=== PATIENT | male | born 1935 | race Caucasian/White ===

== ENCOUNTER 2017-10-17 16:27 | Outpatient (CLI) | payer MEDICARE, OTHER | END 2017-10-17 16:28 | disposition home or self-care (01) | LOC: BICULT 16:27 | PROVIDERS: ATTEND Urology | DX: N39.0 Urinary tract infection, site not specified (principal) | CPT/HCPCS: 76770 ==

== ENCOUNTER 2018-04-24 16:58 | Inpatient (IN) | payer MEDICARE, OTHER ==
[2018-04-24] MEDS ORDERED: Ondansetron HCl/PF 4 MG/2 ML Vial SLOW IVP PRN (17:41)
[2018-04-24] MEDS ORDERED: Benzonatate 100 MG CAP PO PRN (17:41)
[2018-04-24] MEDS ORDERED: Bisacodyl 5 MG TAB PO PRN (17:42)
[2018-04-24] MEDS ORDERED: Lidocaine 1% (PF) 30 ML VIAL ONE (19:25)
[2018-04-24] MEDS ORDERED: Lidocaine 1% w/Epinephrine 1:200K 30 ML VIAL ONE (19:25)
[2018-04-24 19:27] LABS: Lactic Acid 1.2 mmol/L (0.5-2.2)
[2018-04-24 19:28] LABS: ALT (SGPT) 24 U/L (8-55); AST (SGOT) 26 U/L (5-34); Albumin 3.5 g/dL (3.4-4.8); Alkaline Phosphatase 62 U/L (40-150); Anion Gap 11 mmol/L (10-20); BUN (Urea Nitrogen) 21 mg/dL (8.4-25.7); CRP (Inflammatory) 10.12 mg/dL (= or < 0.5); Calc. Creatinine Clearance 55 mL/min (70-130); Calcium 8.9 mg/dL (7.8-10.44); Carbon Dioxide 22 mmol/L (23-31); Chloride 107 mmol/L (98-107); Estimated GFR-MDRD 78; Globulin 3.3 g/dL (2.4-3.5); Glucose 106 mg/dL (83-110); Protein, Total 6.8 g/dL (5.8-8.1); Sodium 136 mmol/L (136-145)
[2018-04-24 19:35] LABS: Band 9 % (5-11); Hemoglobin 12.4 g/dL (14.0-18.0); Lymphocytes 26 % (21-51); MDiff Complete? YES; Mean Corpuscular HGB CONC 32.9 g/dL (32.0-36.0); Mean Corpuscular Hemoglobin 33.5 pg (27.0-31.0); Mean Platelet Volume 7.1 fL (7.4-10.4); Monocytes 11 % (0-10); Neutrophil 54 % (42-75); PLT Morphology Comment Appears Adequate; Platelet Count 178 thou/uL (130-400); RBC Distribution Width 11.4 % (11.5-14.5); White Blood Cell (WBC) Count 9.5 thou/uL (4.8-10.8)
--- NOTE | 2018-04-24 20:55 | PDOC.FPRHP ---
- History of Present Illness Chief Complaint: Left Knee Pain History of Present Illness: Mr Tirado is an 82yo male with pmh of HTN, and dementia who was directly admitted from clinic for suspected septic arthritis. Pt reports pain, swelling and redness to left knee over the last 2 days. He denies any trauma to knee or recent falls. He lives with his daughter. She reports he was able to walk up until 2 days ago when it became too painful to apply weight to left leg. Denies fever, chills, changes in mental status. - Allergies/Adverse Reactions Allergies Allergy/AdvReac Type Severity Reaction Status Date / Time No Known Allergies Allergy Verified 01/17/14 00:10 - Home Medications Medication Instructions Recorded Confirmed Type Doxazosin Mesylate 8 mg PO DAILY 01/04/14 04/24/18 History Aspirin [Ecotrin Low Strength] 81 mg PO DAILY 01/17/14 04/24/18 History Amlodipine [Norvasc] 2.5 mg PO DAILY 04/24/18 04/24/18 History Atorvastatin Calcium [Lipitor] 40 mg PO HS 04/24/18 04/24/18 History Ergocalciferol (Vitamin D2) 50,000 unit PO [id number] 04/24/18 04/24/18 History [Vitamin D2] Finasteride [Proscar] 5 mg PO DAILY 04/24/18 04/24/18 History Folic Acid/Vit B Complex and C 1 tablet PO DAILY 04/24/18 04/24/18 History [Super B-Complex Folic Acid w/ Vitamin C] Furosemide [Lasix] 20 mg PO DAILY 04/24/18 04/24/18 History Mirtazapine [Remeron] 15 mg PO HS 04/24/18 04/24/18 History Potassium Chloride [K-Dur] 20 meq PO DAILY 04/24/18 04/24/18 History Selenium [Selenomax] 200 mcg PO DAILY 04/24/18 04/24/18 History Vitamin E (Dl,Tocopheryl Acet) 450 mg PO DAILY 04/24/18 04/24/18 History [Vitamin E] - History PMHx: BPH, dementia, deconditioning, HLD, depression, HTN PSHx: None FHx: None Social: Denies tobacco, alcohol or drug use. - Review of Systems General: denies: fever/chills, weight/appetite/sleep changes Eyes: denies: eye pain, vision changes ENT: denies: nasal congestion, rhinorrhea Respiratory: denies: cough, congestion, shortness of breath Cardiovascular: denies: chest pain, edema Gastrointestinal: denies: nausea, vomiting, diarrhea, constipation Genitourinary: reports: incontinence. denies: dysuria Skin: denies: rashes, lesions Musculoskeletal: reports: pain, tenderness, stiffness, swelling Neurological: denies: numbness, weakness - Vital signs BP: 136/72 HR: 67 RR: 20 Tmax: 97.9 Pox: 98% on RA Wt: 63kg - Physical Exam Constitutional: NAD, well developed HEENT: normocephalic and atraumatic, normal nasal mucosa, MMM, oropharynx clear Neck: supple, trachea midline Heart: RRR, no murmurs/rubs/gallops Lungs: CTAB, no respiratory distress, no wheezing Abdomen: soft, non-tender, bowel sounds present Musculoskeletal: normal structure, normal tone -Musculoskeletal: 2+ pitting edema LE b/l Left knee: tender to palpation and passive range of motion. Active ROM limited due to pain. Mild erythema and large effusion Neurological: no focal deficit Skin: no rash/lesions, capillary refill <2 seconds Psychiatric: normal mood and affect, good judgment and insight FMR H&P: Results - Labs Result Diagrams: 04/25/18 05:22 10 18:49 Lab results: WBC 9.5 thou/uL (4.8-10.8) 04/24/18 18:49 Hgb 12.4 g/dL (14.0-18.0) L 04/24/18 18:49 Hct 37.6 % (42.0-52.0) L 04/24/18 18:49 MCV 102.0 fL (78.0-98.0) H 18 18:49 Plt Count 178 thou/uL (130-400) 04/24/18 18:49 Band Neuts % (Manual) 9 % (5-11) 18 18:49 ESR Westergren 40 mm/hr (Less than 20) 18 18:49 Sodium 136 mmol/L (136-145) 04/24/18 18:49 Potassium 4.0 mmol/L (3.5-5.1) 04/24/18 18:49 Chloride 107 mmol/L (98-107) 04/24/18 18:49 Carbon Dioxide 22 mmol/L (23-31) L 04/24/18 18:49 BUN 21 mg/dL (8.4-25.7) 04/24/18 18:49 Creatinine 0.93 mg/dL (0.6-1.3) 04/24/18 18:49 Glucose 106 mg/dL (83-110) 04/24/18 18:49 Lactic Acid 1.2 mmol/L (0.5-2.2) 04/24/18 18:49 Calcium 8.9 mg/dL (7.8-10.44) 04/24/18 18:49 Total Bilirubin 1.0 mg/dL (0.2-1.2) 04/24/18 18:49 AST 26 U/L (5-34) 04/24/18 18:49 ALT 24 U/L (8-55) 04/24/18 18:49 Alkaline Phosphatase 62 U/L (40-150) 04/24/18 18:49 C-Reactive Protein 10.12 mg/dL (= or < 0.5) H 04/24/18 18:49 Serum Total Protein 6.8 g/dL (5.8-8.1) 04/24/18 18:49 Albumin 3.5 g/dL (3.4-4.8) 04/24/18 18:49 FMR H&P: A/P - Problem List (1) Effusion, left knee Current Visit: Yes Status: Acute Code(s): M25.462 - EFFUSION, LEFT KNEE (2) Dementia Current Visit: No Status: Acute Code(s): F03.90 - UNSPECIFIED DEMENTIA WITHOUT BEHAVIORAL DISTURBANCE (3) Depression Current Visit: No Status: Acute Code(s): F32.9 - MAJOR DEPRESSIVE DISORDER, SINGLE EPISODE, UNSPECIFIED (4) Hyperlipidemia Current Visit: No Status: Acute Code(s): E78.5 - HYPERLIPIDEMIA, UNSPECIFIED (5) Hypertension Current Visit: No Status: Acute Code(s): I10 - ESSENTIAL (PRIMARY) HYPERTENSION - Plan Suspected Septic Arthritis - DDx also includes Gout vs traumatic hemarthrosis - CRP elevated at 10.12 - Uric acid <6 - Plan to do arthrocentesis with Gram stain and Cx, glucose and protein and eval for crystals - Blood Cx pending - Start Vanc and Zosyn CKD2 - Continue to monitor HTN - Continue home meds BPH - Continue home meds Dementia - At baseline per daughter Code Status: DULL DVT ppx: Lovenox FMR H&P: Upper Level - Pertinent history 82 y/o M w/ PMHx of HTN, Dementia, and BPH presents as a direct admit from clinic for evaluation of suspected septis arthritis. Patient w/ increased swelling, pain, and redness to left knee over the past 2 days. Denies any hx of falls. Pt previously fully ambulatory, but unable to get around 2/2 pain. Pt was treated w/ HCTZ for lower extremity swelling and had ECHO done yesterday per daughter to eval for possible underlying heart failure. Daughter reports she has been giving him the HCTZ which previously worked well for his swelling w /o any improvement. Denies any fevers. No prior/recent hx of knee injections. - Pertinent findings BP 136/72 P 67 RR 20 Temp 97.9 DegF O2sat 96% on RA WBC 9.5 Hgb 12.4 Neut 54% Platelet 178 BUN 21 Cr 0.93 (GFR 78) Gluc 78 CRP 10.12 ESR - 40 GEN: NAD HEENT: Normocephalic, atraumatic. PERRLA, EOMI CARDS: RRR, no murmurs, rubs, or gallops PULM: CTA-B/l, no wheezes or rhonci GI: Soft, NTTP, no rigidty, no guarding, BSx4 Ext: 2+ pitting edema LE b/l w/ mild erythema over L-knee and large effusion noted. L-knee TTP - Plan Date/Time: 04/24/182054 Mariann Remy MD, have evaluated this patient and agree with findings/plan as outlined by internal audit consultant resident. Pertinent changes/additions are listed here. 82 y/o F w/: 1) Septic Arthritis vs Gout vs Traumatic Hemarthrosis - Pt w/ mild erythema and no overt signs of systemic infection on labs - Elevated ESR/CRP do point to an underlying inflammatory process taking place, however cannot differentiate between septic joint and gout 2/2 this - Uric acid level <6 making gout less likely and no endorsed falls. However, patient does have moderate dementia and may be confused and not remembering an acute trauma which could account for this. - Synovial fluid obtained from aspiration grossly bloody and approx. 70 cc removed at this time - Synovial fluid sent to pharmacy fot GS/Cx, glucose, protein, and path to eval for possible crystals - Will start on broad spectrum abx w/ Vancomycin and Zosyn and obtain blood culture to r/o bacteremia as joint would have needed to be seeded by this for infection to occur - Will hold off on starting indomethacin until path review of crystals returns in setting of mild CKD and concern for increased risk of falls on NSAIDs in an elderly patient - Will plan to hold HCTZ in the setting that this is due to a gout flare 2) HTN - Stable. Cont. w/ home medications. 3) BPH - Cont. w/ doxasozin 4) Dementia - Appears to be at baseline. Will cont. to monitor 5) CKD 2 - Appears at baseline from outside labs - Will cont. to monitor and renal dose meds as needed CODE STATUS: Full LOS: >2 midnights Diet: HH Attending Addendum - Attending Addendum Date/Time: 04/25/18 1301 I personally evaluated the patient and discussed the management with Dr. Kilpatrick on 04/24/2018 @ 2200 I agree with the History, Examination, Assessment and Plan documented above with any addition or exceptions noted below- Briefly this is an 82 yo male with h/o dementia, HTN, HLD who was sent from clinic due to possible septic knee. Patient states taht his knee has been painful, swoolen and red for last 2 days. Unable to weight bear secondary to pain. Denies any recent fall or trauma. Denies any h/o gout though patient was recently started on HCTZ for BP. PMH/PSH/ Meds/All reviewed and agree with resident's documentation. Afebrile VSS. Exam repeated by me and agree with resident's findings. Labs: WBC= 935, H/H=12.4/37.6 , plt= 178, Diff= 54N/9B/26L, Oa=127, K=4.0, Nj=623, CO2=22, BUN/Cr= 21/0.93, Gluc= 106, uric acid=5.7, Lactate-1.2 CRP= 10.12 A/P: 1) Knee effusion, pain, warmth- possible septic arthritis- plan for knee aspiration tonight; blood cultures ordered and will start Vanc/zosyn after aspiration. 2) HTN- continue home meds; hold HCTZ for now.
[2018-04-24] MEDS: Atorvastatin Calcium 40 MG TAB PO SCH (22:25)
[2018-04-24] MEDS: Mirtazapine 15 MG TAB PO SCH (22:25)
[2018-04-24 22:54] LABS: BF Color Red; Body Fluid Source SYNOVIAL FLUID; Clarity Cloudy/Turbid (Clear); RBC Background Count 0.002; Tube # EDTA
[2018-04-24 22:55] LABS: RBC Count-Automated 244000 /cumm; WBC/NonHematic-Auto 30600 /cumm
[2018-04-24 23:17] LABS: BF Segmented Neutrophils 78 %; Cell Count Non Hematic 21 %; Lymphocytes 1 %
[2018-04-24] MEDS: Vancomycin HCl 1 GM in Premix Bag 1 BAG IVPB SCH (23:22)
[2018-04-24] MEDS: Piperacillin/Tazobactam 3.375 GM in Sodium Chloride 0.9% 100 ML IVPB SCH (23:23)
--- NOTE | 2018-04-25 02:53 | PDOC.OP ---
Operative Note - Operative Note Operative Note: Pre-Op Diagnosis: Possible Septic Arthritis Post-Op Diagnosis: Same as above Procedure: Arthrocentesis of Major Joint - Left Knee Attending: Dr. Lorenz in attendance for the entire procedure Resident: Dr. Mariann Marin Consent for Arthrocentesis: Risks and benefits discussed with patient with consent obtained and placed into chart Procedure: The patient was laid flat w/ legs extended and a rolled towel placed behind the knee in the popliteal fossa. Ultrasound was used to evaluate the joint space. The associated joint effusion was visualized and the overlying skin marked at the supero-lateral aspect of the knee. The site was cleansed with alcohol and 1 % lidocaine w/o epi was administered via a 22 gauge needle with initial wheel formation and subsequent tracking down into the effusion which was confirmed via ultrasound. The knee was then prepped again in sterile fashion using chlorhexidine. An 18 gauge needle was subsequently introduced using sterile technique using the previously anesthetized track with negative pressure placed on the syringe. Synovial fluid was successfully expressed and noted to be grossly bloody. Approximately 70 cc of fluid was aspirated from the knee with samples placed in a sterile container to be sent to the lab for analysis. Estimated Blood Loss: None Complications: None. The patient tolerated the procedure well without complications. <Rodney Marin - Last Filed: 04/25/18 02:36> Attending Addendum - Attending Addendum Date/Time: 04/25/18 6993 I personally evaluated the patient and discussed the management with Dr. Marin on 04/24/2018@2200 I was present, assisted and supervised the left knee arthrocentesis. 70-80mL bloody fluid removed. Patient tolerated procedure well. Fluid sent for further analysis. <Yessica Lorenz - Last Filed: 04/25/18 13:00>
[2018-04-25 05:45] LABS: #Eosinphils 0.1 thou/uL (0.0-0.7); #Monocytes 1.1 thou/uL (0.11-0.59); #Neutrophils 5.3 thou/uL (1.40-6.50); %Basophils 0.3 % (0.0-1.0); %Eosinophils 0.9 % (0.0-10.0); %Lymphocytes 23.3 % (21.0-51.0); %Monocytes 12.9 % (0.0-10.0); %Neutrophils 62.6 % (42.0-75.0); Hemoglobin 11.6 g/dL (14.0-18.0); Mean Corpuscular HGB CONC 33.1 g/dL (32.0-36.0); Mean Corpuscular Hemoglobin 33.5 pg (27.0-31.0); Mean Platelet Volume 7.1 fL (7.4-10.4); Platelet Count 167 thou/uL (130-400); RBC Distribution Width 11.4 % (11.5-14.5); Red Blood Cell (RBC) Count 3.48 mill/uL (4.70-6.10); White Blood Cell (WBC) Count 8.5 thou/uL (4.8-10.8)
[2018-04-25] MEDS: Piperacillin/Tazobactam 3.375 GM in Sodium Chloride 0.9% 100 ML IVPB SCH ×4 (05:54→23:59)
--- NOTE | 2018-04-25 06:54 | PDOC.FM ---
- Subjective Subjective: Mr. Tirado is sleeping comfortably in bed, no complaints at this time. Alert, not sure why he is here. - Objective Vital Signs & Weight: Vital Signs (12 hours) Temp Pulse Resp BP Pulse Ox 04/25/18 03:56 98.5 F 70 19 155/69 H 94 L 04/25/18 00:35 97.4 F L 70 20 149/70 H 98 04/24/18 20:13 97.9 F 104 H 22 H 121/55 L 96 Weight Weight 63.049 kg I&O: 04/23/18 04/24/18 04/25/18 06:59 06:59 06:59 Intake Total 540 Balance 540 Result Diagrams: 04/25/18 05:22 04/24/18 18:49 <Braulio Tsai - Last Filed: 04/25/18 09:22> - Objective Vital Signs & Weight: Vital Signs (12 hours) Temp Pulse Resp BP BP Pulse Ox 04/25/18 11:45 97.7 F 70 18 117/74 96 04/25/18 08:32 64 143/63 H 04/25/18 08:27 92 L 04/25/18 07:43 97.4 F L 99 18 143/63 H 92 L 04/25/18 03:56 98.5 F 70 19 155/69 H 94 L Weight Weight 63.049 kg I&O: 04/24/18 04/25/18 04/26/18 06:59 06:59 06:59 Intake Total 540 300 Balance 540 300 Result Diagrams: 04/25/18 05:22 04/24/18 18:49 <Yessica Lorenz - Last Filed: 04/25/18 12:58> Phys Exam - Physical Examination Constitutional: NAD HEENT: moist MMs Respiratory: no wheezing, no rales, no rhonchi, clear to auscultation bilateral Cardiovascular: RRR, no significant murmur Gastrointestinal: soft, no distention Musculoskeletal: no edema, pulses present pain to palpation over L knee Neurological: non-focal, moves all 4 limbs Psychiatric: normal affect Skin: no rash <Braulio Tsai - Last Filed: 04/25/18 09:22> Dx/Plan (1) Effusion, left knee Code(s): M25.462 - EFFUSION, LEFT KNEE Status: Acute (2) CKD (chronic kidney disease) stage 2, GFR 60-89 ml/min Code(s): N18.2 - CHRONIC KIDNEY DISEASE, STAGE 2 (MILD) Status: Acute (3) Depression Code(s): F32.9 - MAJOR DEPRESSIVE DISORDER, SINGLE EPISODE, UNSPECIFIED Status : Acute (4) Hyperlipidemia Code(s): E78.5 - HYPERLIPIDEMIA, UNSPECIFIED Status: Acute (5) Hypertension Code(s): I10 - ESSENTIAL (PRIMARY) HYPERTENSION Status: Acute - Plan Plan: Suspected Septic Arthritis - DDx also includes Gout vs traumatic hemarthrosis - CRP elevated at 10.12 - Uric acid <6 - arthrocentesis with Gram stain and Cx, glucose and protein and eval for crystals - Blood Cx pending - Start Vanc and Zosyn CKD2 - Continue to monitor HTN - Continue home meds BPH - Continue home meds Dementia - At baseline per daughter Code Status: DULL DVT ppx: Lovenox Dispo: poss DC with negative gram staining of joint aspirate <Braulio Tsai - Last Filed: 04/25/18 09:22> Attending Addendum - Attending Addendum Date/Time: 04/25/18 3234 I personally evaluated the patient and discussed the management with Dr. Tsai I agree with the History, Examination, Assessment and Plan documented above with any addition or exceptions noted below- Patient denies complaints. Still with some pain with flexion of knee. Afebrile VSS. A/P: 1) Knee effusion and pain- s/p arthrocentesis; Gram stain with no organisms. Cell count with high RBC , WBC count and no organisms seem. Now suspecting traumatic effusion. Await crystal analysis and culture. Continue IV abx for now. Will also check LE doppler as calf also swollen though not tender. <Yessica Lorenz - Last Filed: 04/25/18 12:58>
[2018-04-25] MEDS: Amlodipine 5 MG TAB PO SCH (08:32)
[2018-04-25] MEDS: Potassium Chloride 20 MEQ TAB PO SCH (08:32)
[2018-04-25] MEDS: Folic Acid/Vit B Comp W-C PO SCH (08:33)
[2018-04-25] MEDS: Vitami E (Dl,Tocopheryl Acet) 400 UNITS CAP PO SCH (08:33)
[2018-04-25] MEDS: Finasteride 5 MG TAB PO SCH (08:33)
[2018-04-25] MEDS: Aspirin 81 mg Enteric Coated Tablet PO SCH (08:33)
[2018-04-25] MEDS: Doxazosin Mesylate 4 MG TAB PO SCH (08:33)
[2018-04-25] MEDS: Furosemide 20 MG TAB PO SCH (08:33)
[2018-04-25] MEDS: Enoxaparin Sodium 40 MG/0.4 ML SYRINGE SC SCH (08:34)
[2018-04-25] MEDS ORDERED: SELENIUM 200 MCG PO SCH (09:00)
[2018-04-25] MEDS: Mirtazapine 15 MG TAB PO SCH (22:20)
[2018-04-25] MEDS: Vancomycin HCl 1 GM in Premix Bag 1 BAG IVPB SCH (22:20)
[2018-04-25] MEDS: Atorvastatin Calcium 40 MG TAB PO SCH (22:20)
--- NOTE | 2018-04-25 23:35 | ULT ---
BILATERAL LOWER EXTREMITY VENOUS DUPLEX EXAM: HISTORY: Bilateral lower extremity swelling and edema. TECHNIQUE: Real-time color Doppler evaluation of the right and left lower extremities was performed from the boo in to the calf. This includes evaluation of the common femoral, superficial femoral, profunda femora l, saphenous, popliteal, and posterior tibial veins. FINDINGS: This shows patent deep venous systems bilaterally. There is normal compressibility and augmentation. There is no evidence of DVT. IMPRESSION: No evidence of deep venous thrombosis of either lower extremity. POS: TOY
--- NOTE | 2018-04-26 06:19 | PDOC.FM ---
- Subjective Subjective: Mr. Tirado is resting comfortably in bed, seemingly at baseline mentation, unsure of situation. No reported pain. no other complaints - Objective Vital Signs & Weight: Vital Signs (12 hours) Temp Pulse Resp BP Pulse Ox 04/26/18 00:00 98.7 F 73 18 124/66 94 L 04/25/18 20:00 98.2 F 82 20 130/62 93 L Weight Weight 63.049 kg I&O: 04/24/18 04/25/18 04/26/18 06:59 06:59 06:59 Intake Total 540 900 Balance 540 900 Result Diagrams: 04/26/18 04:55 04/24/18 18:49 <Braulio Tsai - Last Filed: 04/26/18 07:56> - Objective Vital Signs & Weight: Vital Signs (12 hours) Temp Pulse Resp BP BP Pulse Ox 04/26/18 14:52 97.9 F 76 16 127/69 94 L 04/26/18 11:01 98.2 F 76 22 H 120/66 94 L 04/26/18 11:00 98.2 F 76 22 H 120/66 94 L 04/26/18 08:25 64 113/61 Weight Weight 63.049 kg I&O: 04/25/18 04/26/18 04/27/18 06:59 06:59 06:59 Intake Total 540 1800 900 Balance 540 1800 900 Result Diagrams: 04/26/18 04:55 04/24/18 18:49 <Yessica Lorenz - Last Filed: 04/26/18 20:20> Phys Exam - Physical Examination Constitutional: NAD HEENT: moist MMs Respiratory: clear to auscultation bilateral Cardiovascular: RRR, no significant murmur Gastrointestinal: soft, non-tender, no distention Musculoskeletal: pulses present, edema present (improved from yesterday ) tenderness to palpation over R lower leg Neurological: non-focal Psychiatric: normal affect <Braulio Tsai - Last Filed: 04/26/18 07:56> Dx/Plan (1) Effusion, left knee Code(s): M25.462 - EFFUSION, LEFT KNEE Status: Acute (2) CKD (chronic kidney disease) stage 2, GFR 60-89 ml/min Code(s): N18.2 - CHRONIC KIDNEY DISEASE, STAGE 2 (MILD) Status: Acute (3) Depression Code(s): F32.9 - MAJOR DEPRESSIVE DISORDER, SINGLE EPISODE, UNSPECIFIED Status : Acute (4) Hyperlipidemia Code(s): E78.5 - HYPERLIPIDEMIA, UNSPECIFIED Status: Acute (5) Hypertension Code(s): I10 - ESSENTIAL (PRIMARY) HYPERTENSION Status: Acute - Plan Plan: Suspected Septic Arthritis - DDx also includes Gout vs traumatic hemarthrosis - CRP elevated at 10.12 - Uric acid <6 - arthrocentesis with Gram stain and Cx, glucose and protein negative for infection - eval for crystals pending - Blood Cx pending - Start Vanc and Zosyn, consider DCing today CKD2 - Continue to monitor HTN - Continue home meds BPH - Continue home meds Dementia - At baseline per daughter Code Status: DULL DVT ppx: Lovenox Dispo: poss DC with aspirate reading <Braulio Tsai - Last Filed: 04/26/18 07:56> (1) Effusion, left knee Code(s): M25.462 - EFFUSION, LEFT KNEE Status: Acute (2) Dementia Code(s): F03.90 - UNSPECIFIED DEMENTIA WITHOUT BEHAVIORAL DISTURBANCE Status: Acute (3) Depression Code(s): F32.9 - MAJOR DEPRESSIVE DISORDER, SINGLE EPISODE, UNSPECIFIED Status : Acute (4) Hyperlipidemia Code(s): E78.5 - HYPERLIPIDEMIA, UNSPECIFIED Status: Acute (5) Hypertension Code(s): I10 - ESSENTIAL (PRIMARY) HYPERTENSION Status: Acute <Yessica Lorenz - Last Filed: 04/26/18 20:20> Attending Addendum - Attending Addendum Date/Time: 04/26/182016 I personally evaluated the patient and discussed the management with Dr. Tsai I agree with the History, Examination, Assessment and Plan documented above with any addition or exceptions noted below- Patient eating breakfast. only has pain if tries to bend knees. Both knees now hurting. Afebrile VSS. A/P: 1) Knee effusion- culture negative x 24 hours. Continue abx until finalized. Suspect traumatic effusion. Crystal analysis still pending, will be available tomorrow. Will consult PT to assist with mobilization. <Yessica Lorenz - Last Filed: 04/26/18 20:20>
[2018-04-26] MEDS: Piperacillin/Tazobactam 3.375 GM in Sodium Chloride 0.9% 100 ML IVPB SCH ×4 (06:21→23:25)
[2018-04-26 06:31] LABS: #Lymphocytes 1.7 thou/uL (1.20-3.40); #Monocytes 1.2 thou/uL (0.11-0.59); #Neutrophils 5.7 thou/uL (1.40-6.50); %Basophils 0.3 % (0.0-1.0); %Eosinophils 0.3 % (0.0-10.0); %Lymphocytes 19.8 % (21.0-51.0); %Monocytes 13.3 % (0.0-10.0); %Neutrophils 66.3 % (42.0-75.0); Hemoglobin 11.5 g/dL (14.0-18.0); Mean Corpuscular HGB CONC 33.4 g/dL (32.0-36.0); Mean Corpuscular Hemoglobin 33.4 pg (27.0-31.0); Mean Corpuscular Volume 99.9 fL (78.0-98.0); Mean Platelet Volume 7.4 fL (7.4-10.4); Platelet Count 166 thou/uL (130-400); RBC Distribution Width 11.3 % (11.5-14.5); Red Blood Cell (RBC) Count 3.45 mill/uL (4.70-6.10); White Blood Cell (WBC) Count 8.6 thou/uL (4.8-10.8)
[2018-04-26] MEDS: Folic Acid/Vit B Comp W-C PO SCH (08:24)
[2018-04-26] MEDS: Potassium Chloride 20 MEQ TAB PO SCH (08:24)
[2018-04-26] MEDS: Finasteride 5 MG TAB PO SCH (08:24)
[2018-04-26] MEDS: Aspirin 81 mg Enteric Coated Tablet PO SCH (08:24)
[2018-04-26] MEDS: Vitami E (Dl,Tocopheryl Acet) 400 UNITS CAP PO SCH (08:25)
[2018-04-26] MEDS: Doxazosin Mesylate 4 MG TAB PO SCH (08:25)
[2018-04-26] MEDS: Furosemide 20 MG TAB PO SCH (08:25)
[2018-04-26] MEDS: Enoxaparin Sodium 40 MG/0.4 ML SYRINGE SC SCH (08:25)
[2018-04-26] MEDS: Amlodipine 5 MG TAB PO SCH (08:25)
[2018-04-26] MEDS: Acetaminophen 500 MG TAB PO PRN (14:47)
[2018-04-26] MEDS: Atorvastatin Calcium 40 MG TAB PO SCH (22:05)
[2018-04-26] MEDS: Vancomycin HCl 1 GM in Premix Bag 1 BAG IVPB SCH (22:05)
[2018-04-26] MEDS: Mirtazapine 15 MG TAB PO SCH (22:05)
[2018-04-26 22:41] LABS: Vancomycin, Trough 4.4 ug/mL
[2018-04-27] MEDS: Piperacillin/Tazobactam 3.375 GM in Sodium Chloride 0.9% 100 ML IVPB SCH (05:40)
[2018-04-27 05:43] LABS: #Eosinphils 0.1 thou/uL (0.0-0.7); #Lymphocytes 1.5 thou/uL (1.20-3.40); #Monocytes 0.9 thou/uL (0.11-0.59); #Neutrophils 5.1 thou/uL (1.40-6.50); %Basophils 0.5 % (0.0-1.0); %Eosinophils 1.5 % (0.0-10.0); %Lymphocytes 19.9 % (21.0-51.0); %Monocytes 11.8 % (0.0-10.0); %Neutrophils 66.2 % (42.0-75.0); Hemoglobin 11.2 g/dL (14.0-18.0); Mean Corpuscular HGB CONC 32.5 g/dL (32.0-36.0); Mean Corpuscular Hemoglobin 32.8 pg (27.0-31.0); Mean Platelet Volume 7.2 fL (7.4-10.4); Platelet Count 171 thou/uL (130-400); RBC Distribution Width 11.3 % (11.5-14.5); Red Blood Cell (RBC) Count 3.41 mill/uL (4.70-6.10); White Blood Cell (WBC) Count 7.7 thou/uL (4.8-10.8)
--- NOTE | 2018-04-27 06:22 | PDOC.FM ---
- Subjective Subjective: Mr. Tirado is sleeping comfortably in bed, he has no complaints at this time. Denies knee pain. When asked about a PT assesment, he reported he "doesnt like to be fooled with" - Objective Vital Signs & Weight: Vital Signs (12 hours) Temp Pulse Resp BP Pulse Ox 04/27/18 04:00 98.9 F 76 14 140/68 97 04/27/18 00:00 98.3 F 63 16 138/57 L 97 04/26/18 22:06 80 L 04/26/18 19:30 97.4 F L 80 16 127/69 96 Weight Weight 63.049 kg I&O: 04/25/18 04/26/18 04/27/18 06:59 06:59 06:59 Intake Total 540 1800 900 Balance 540 1800 900 Result Diagrams: 04/27/18 05:12 04/24/18 18:49 Phys Exam - Physical Examination HEENT: moist MMs Respiratory: no wheezing, no rales, no rhonchi, clear to auscultation bilateral Cardiovascular: RRR, no significant murmur, no rub Gastrointestinal: soft, no distention Musculoskeletal: no edema, pulses present edema and tenderness to palpation much improved Neurological: moves all 4 limbs Psychiatric: normal affect Skin: no rash Dx/Plan (1) Effusion, left knee Code(s): M25.462 - EFFUSION, LEFT KNEE Status: Acute (2) CKD (chronic kidney disease) stage 2, GFR 60-89 ml/min Code(s): N18.2 - CHRONIC KIDNEY DISEASE, STAGE 2 (MILD) Status: Acute (3) Depression Code(s): F32.9 - MAJOR DEPRESSIVE DISORDER, SINGLE EPISODE, UNSPECIFIED Status : Acute (4) Hyperlipidemia Code(s): E78.5 - HYPERLIPIDEMIA, UNSPECIFIED Status: Acute (5) Hypertension Code(s): I10 - ESSENTIAL (PRIMARY) HYPERTENSION Status: Acute - Plan Plan: Suspected Septic Arthritis - Most likely traumatic hemarthrosis, DDx also includes Gout - CRP elevated at 10.12 - Uric acid <6 - arthrocentesis with Gram stain and Cx, glucose and protein negative for infection - eval for crystals pending - Blood/knee aspirate cultures neg at 48 hrs, CHARLEY garcia CKD2 - Continue to monitor HTN - Continue home meds BPH - Continue home meds Dementia - At baseline per daughter Code Status: DULL DVT ppx: Lovenox Dispo: poss DC with aspirate crystal reading/PT eval
[2018-04-27] MEDS: Potassium Chloride 20 MEQ TAB PO SCH (08:52)
[2018-04-27] MEDS: Amlodipine 5 MG TAB PO SCH ×2 (08:53→09:03)
[2018-04-27] MEDS: Aspirin 81 mg Enteric Coated Tablet PO SCH ×2 (08:53→09:05)
[2018-04-27] MEDS: Doxazosin Mesylate 4 MG TAB PO SCH ×2 (08:53→09:05)
[2018-04-27] MEDS: Acetaminophen 500 MG TAB PO PRN (08:53)
[2018-04-27] MEDS: Furosemide 20 MG TAB PO SCH ×2 (08:53→09:05)
[2018-04-27] MEDS: Finasteride 5 MG TAB PO SCH ×2 (08:53→09:05)
[2018-04-27] MEDS: Vitami E (Dl,Tocopheryl Acet) 400 UNITS CAP PO SCH (08:53)
[2018-04-27] MEDS: Folic Acid/Vit B Comp W-C PO SCH (08:53)
[2018-04-27] MEDS: Enoxaparin Sodium 40 MG/0.4 ML SYRINGE SC SCH ×2 (08:53→09:05)
[2018-04-27] MEDS ORDERED: Vancomycin HCl 1 GM in Premix Bag 1 BAG IVPB SCH (11:00)
--- NOTE | 2018-04-27 12:13 | PRG ---
DATE OF SERVICE: 04/27/2018 This is an addendum to the note of Dr. Braulio Tsai. Mr. Tirado's left knee looks and feels better. So for his Gram stain and culture are negative for se ptic arthritis. We are waiting crystal analysis for gout. In any event, he is likely ready for disc harge later today on an NSAID.
[2018-04-27] MEDS ORDERED: predniSONE 20 MG TAB PO SCH (12:30)
[2018-04-27] MEDS: Atorvastatin Calcium 40 MG TAB PO SCH (21:06)
[2018-04-27] MEDS: Mirtazapine 15 MG TAB PO SCH (21:06)
[2018-04-28 06:21] LABS: #Lymphocytes 1.4 thou/uL (1.20-3.40); #Monocytes 0.6 thou/uL (0.11-0.59); #Neutrophils 6.6 thou/uL (1.40-6.50); %Basophils 0.2 % (0.0-1.0); %Eosinophils 0.5 % (0.0-10.0); %Lymphocytes 16.2 % (21.0-51.0); %Monocytes 6.8 % (0.0-10.0); %Neutrophils 76.4 % (42.0-75.0); Hemoglobin 11.9 g/dL (14.0-18.0); Mean Corpuscular Hemoglobin 33.5 pg (27.0-31.0); Mean Platelet Volume 7.8 fL (7.4-10.4); Platelet Count 197 thou/uL (130-400); RBC Distribution Width 11.3 % (11.5-14.5); Red Blood Cell (RBC) Count 3.54 mill/uL (4.70-6.10); White Blood Cell (WBC) Count 8.7 thou/uL (4.8-10.8)
--- NOTE | 2018-04-28 06:26 | PDOC.FM ---
- Subjective Subjective: Mr. Tirado is sleeping comfortably in bed, when aroused he has no complaints. Orientation at baseline. - Objective Vital Signs & Weight: Vital Signs (12 hours) Temp Pulse Resp BP Pulse Ox 04/28/18 04:00 97.5 F L 63 16 134/66 95 04/27/18 23:45 97.5 F L 67 14 123/76 97 04/27/18 20:00 94 L 04/27/18 19:44 97.5 F L 79 16 124/67 94 L Weight Weight 63.049 kg I&O: 04/26/18 04/27/18 04/28/18 06:59 06:59 06:59 Intake Total 4554 254 0070 Balance 5427 981 5634 Result Diagrams: 04/28/18 05:23 04/24/18 18:49 Phys Exam - Physical Examination Constitutional: NAD HEENT: moist MMs Respiratory: no wheezing, no rales, no rhonchi, clear to auscultation bilateral Cardiovascular: RRR, no significant murmur, no rub Gastrointestinal: soft, non-tender, no distention Musculoskeletal: no edema Neurological: non-focal Psychiatric: normal affect Skin: no rash Dx/Plan (1) Effusion, left knee Code(s): M25.462 - EFFUSION, LEFT KNEE Status: Acute (2) CKD (chronic kidney disease) stage 2, GFR 60-89 ml/min Code(s): N18.2 - CHRONIC KIDNEY DISEASE, STAGE 2 (MILD) Status: Acute (3) Depression Code(s): F32.9 - MAJOR DEPRESSIVE DISORDER, SINGLE EPISODE, UNSPECIFIED Status : Acute (4) Hyperlipidemia Code(s): E78.5 - HYPERLIPIDEMIA, UNSPECIFIED Status: Acute (5) Hypertension Code(s): I10 - ESSENTIAL (PRIMARY) HYPERTENSION Status: Acute - Plan Plan: Psuedogout - Aspirate read resulted pseudogout crystals - CRP elevated at 10.12 - Uric acid <6 - arthrocentesis with Gram stain and Cx, glucose and protein negative for infection - prednisone 30mg for 3 days, taper - Blood/knee aspirate cultures neg at 48 hrs, DC vanc zosyn CKD2 - Continue to monitor HTN - Continue home meds BPH - Continue home meds Dementia - At baseline per daughter Code Status: DULL DVT ppx: Lovenox Dispo: poss DC home with daughter today with successful ambulation, or DC to SNF for strengthening
[2018-04-28] MEDS: Doxazosin Mesylate 4 MG TAB PO SCH (08:39)
[2018-04-28] MEDS: Vitami E (Dl,Tocopheryl Acet) 400 UNITS CAP PO SCH (08:39)
[2018-04-28] MEDS: Amlodipine 5 MG TAB PO SCH (08:39)
[2018-04-28] MEDS: predniSONE 20 MG TAB PO SCH (08:40)
[2018-04-28] MEDS: Aspirin 81 mg Enteric Coated Tablet PO SCH (08:40)
[2018-04-28] MEDS: Potassium Chloride 20 MEQ TAB PO SCH (08:40)
[2018-04-28] MEDS: Furosemide 20 MG TAB PO SCH (08:40)
[2018-04-28] MEDS: Finasteride 5 MG TAB PO SCH (08:40)
[2018-04-28] MEDS: Folic Acid/Vit B Comp W-C PO SCH (08:40)
[2018-04-28] MEDS: Enoxaparin Sodium 40 MG/0.4 ML SYRINGE SC SCH (08:42)
--- NOTE | 2018-04-28 11:41 | PRG ---
DATE OF SERVICE: 04/28/2018 SUBJECTIVE: Mr. Tirado's knee aspiration came back positive for pseudogout. He is currently on ster oids for treatment. He is ready for discharge, but given that he is deconditioned, we are encouragin g him to work with OT, PT in anticipation of this discharge.
[2018-04-28] MEDS: Atorvastatin Calcium 40 MG TAB PO SCH (20:19)
[2018-04-28] MEDS: Mirtazapine 15 MG TAB PO SCH (20:19)
--- NOTE | 2018-04-29 00:11 | DIS-2 ---
DATE OF ADMISSION: 04/24/2018 DATE OF DISCHARGE: 04/28/2018 RESIDENT: Braulio Tsai D.O. ADMITTING ATTENDING: Yessica Lorenz M.D. DISCHARGE ATTENDING: Simone Fitzpatrick M.D. CONSULTATIONS: None. PROCEDURES: Arthrocentesis. Results: Synovial fluid was successfully expressed noted to be grossly bloody approximately 70 mL of fluid was aspirated from the knee. The left knee with samples placed in a sterile container to be sent to the lab for analysis and analysis revealed pseudogout crystals. Gram stain negative growth at 48 hours is negative. PRIMARY DIAGNOSIS: Pseudogout. SECONDARY DIAGNOSES: 1. Chronic kidney disease 2. 2. Hypertension. 3. Benign prostatic hypertrophy. 4. Dementia. DISCHARGE MEDICATIONS: 1. Doxazosin 8 mg p.o. daily. 2. Aspirin 81 mg p.o. daily. 3. Remeron 50 mg p.o. at bedtime. 4. Lipitor 40 mg p.o. at bedtime. 5. Vitamin D2 of 50,000 units p.o. q.7 days. 6. Lasix 20 mg p.o. daily. 7. K-Dur 20 mEq p.o. daily. 8. Finasteride 5 mg p.o. daily. 9. Vitamin E 450 mg p.o. daily. 10. Folic acid 1 tab p.o. daily. 11. Selenium 200 mcg p.o. daily. 12. Amlodipine 2.5 mg p.o. daily. 13. Acetaminophen 1000 mg p.o. q.6 hours p.r.n. 14. Prednisone 30 mg p.o. q.a.m. for 3 days. 15. Prednisone 20 mg p.o. q.a.m. for 1 day after the 30 mg was finished. 16. Prednisone 10 mg q.a.m. for one day after the 20 mg was finished. DISCONTINUED MEDICATIONS: None. HISTORY OF PRESENT ILLNESS AND HOSPITAL COURSE: This is a 82-year-old male with past medical history of hypertension and dementia who was directly admitted from clinic for suspected septic arthritis. The patient reports pain, swelling, redness to the left knee over the last 2 days. He denies any tra rita, any recent falls. He lives with his daughter. He reports he is able to walk two days ago and b ecame too painful to apply a weight to his left leg. He denies fever, chills, changes in mental stat us at that time. During hospital course, knee joint was aspirated and sent for cultures and analysis . After a few days of symptomatic pain control, the patient remained stable with past medical histor y of chronic conditions at baseline for 3 days. Crystals were resulted on the fourth day showing pse udogout. The patient was then started on steroid treatment at that time with symptoms improving. Th e patient was deemed stable for discharge, but unable to return home. Recommended it was best for th e patient to go to [facility] facility. DISPOSITION: Stable. DISCHARGE INSTRUCTIONS: 1. Location: long term facility. 2. Diet: Heart healthy. 3. Activity: As tolerated. Recommend PT, OT therapy. 4. Follow up in [address] Joon Navarrete.
[2018-04-29] MEDS: Finasteride 5 MG TAB PO SCH (08:38)
[2018-04-29] MEDS: predniSONE 20 MG TAB PO SCH (08:38)
[2018-04-29] MEDS: Folic Acid/Vit B Comp W-C PO SCH (08:38)
[2018-04-29] MEDS: Vitami E (Dl,Tocopheryl Acet) 400 UNITS CAP PO SCH (08:38)
[2018-04-29] MEDS: Furosemide 20 MG TAB PO SCH (08:39)
[2018-04-29] MEDS: Amlodipine 5 MG TAB PO SCH (08:39)
[2018-04-29] MEDS: Aspirin 81 mg Enteric Coated Tablet PO SCH (08:40)
[2018-04-29] MEDS: Potassium Chloride 20 MEQ TAB PO SCH (08:40)
[2018-04-29] MEDS: Doxazosin Mesylate 4 MG TAB PO SCH (08:40)
[2018-04-29] MEDS: Enoxaparin Sodium 40 MG/0.4 ML SYRINGE SC SCH (08:40)
[2018-04-29 08:41] VITALS: BP 142/63; TEMP 97.4
[2018-05-01] MEDS ORDERED: Ergocalciferol 1.25 MG(50,000 UNITS) CAP PO SCH (09:00)
[2018-05-03] MEDS ORDERED: predniSONE 20 MG TAB PO SCH (08:00)
[2018-05-05] MEDS ORDERED: predniSONE 5 MG TAB PO SCH (08:00)
== END 2018-04-29 09:33 | DRG 554 ==
LOC: SJJU 16:58
PROVIDERS: ADMIT Family Medicine; ATTEND Family Medicine
PROC: 0S9D3ZX Drainage of Left Knee Joint, Percutaneous Approach, Diagnostic (ICD-10-PCS; principal; 2018-04-25)
DX: M11.262 Other chondrocalcinosis, left knee (principal); M25.462 Effusion, left knee; F03.90 Unspecified dementia, unspecified severity, without behavioral disturbance, psychotic disturbance, mood disturbance, and anxiety; N40.0 Benign prostatic hyperplasia without lower urinary tract symptoms; E78.5 Hyperlipidemia, unspecified; F32.9 Major depressive disorder, single episode, unspecified; I12.9 Hypertensive chronic kidney disease with stage 1 through stage 4 chronic kidney disease, or unspecified chronic kidney disease; N18.2 Chronic kidney disease, stage 2 (mild); S83.92XA Sprain of unspecified site of left knee, initial encounter; X58.XXXA Exposure to other specified factors, initial encounter; Y92.9 Unspecified place or not applicable; Z79.82 Long term (current) use of aspirin
CPT/HCPCS: 36415; 80053; 80202; 82945; 83605; 83880; 84157; 84550; 85025; 85060; 85652; 86140; 87040; 87070; 87205; 89051; 89060; 93970; G8978-GP-CL; G8979-GP-CI; J1650; J2001; J2543; J3370; J7050; J7506